=== PATIENT | male | born 1950 | race African-American/Black ===

== ENCOUNTER → 2019-11-12 | Outpatient (CLI) | payer OTHER, MEDICAID ==
[~2019-11-12] VITALS: Ht 172.7 cm; Wt 86.6 kg
[~2019-11-12] MED LIST: ALBU108A14 IN; AMLO5TAB15 PO; BRIM0.2S2; CALC0.25 PO; CHOL200031 PO; CLON0.3D4 PO; CLOP75TA28; DOCU100T15 PO; FERR-20 PO; FURO40TA4; FURO40TA4 PO; GABA100C9; HYDR-392 PO; HYDR-4296 PO; HYDR-4833 PO; HYDRCRY2; INSU1.2I SC; INSUINJ; ISOS20TA56 PO; LACT10SO70 PO; METO-169 PO; NITR0.4S31; PATI1POW PO; POTA10CA29; PRAV20TA3 PO; PRED1DRO OP; PRO125RS; RANO1000 PO; SIMV-13; VALS160T43 PO; VENL37.588 PO; [UNRECOGNIZED DRUG - CODE]
== END | disposition home or self-care (01) ==
LOC: SUR 12:02 → EDSTATUS 11-16 10:30
PROVIDERS: ATTEND Orthopaedic Surgery Hand Surgery
DX: Z01.818 Encounter for other preprocedural examination (principal); J45.909 Unspecified asthma, uncomplicated; E11.9 Type 2 diabetes mellitus without complications; Z79.84 Long term (current) use of oral hypoglycemic drugs; Z20.828 Contact with and (suspected) exposure to other viral communicable diseases; Z88.0 Allergy status to penicillin; Z88.5 Allergy status to narcotic agent; Z88.6 Allergy status to analgesic agent; Z98.890 Other specified postprocedural states